=== PATIENT | female | born 1975 | race Caucasian/White ===

== ENCOUNTER 2018-04-27 20:14 | Emergency (ER) | payer MEDICAID ==
[2018-04-27 22:15] VITALS: BP 120/77
== END 2018-04-27 23:05 | disposition home or self-care (01) ==
LOC: ED 20:14
DX: S82.402A Unspecified fracture of shaft of left fibula, initial encounter for closed fracture (principal); J45.909 Unspecified asthma, uncomplicated; W05.1XXA Fall from non-moving nonmotorized scooter, initial encounter; Y93.89 Activity, other specified; Y92.89 Other specified places as the place of occurrence of the external cause; Y99.8 Other external cause status